=== PATIENT | male | born 1990 | race Caucasian/White ===

== ENCOUNTER 2021-05-15 14:14 | Emergency (ER) | payer OTHER, SELFPAY ==
--- NOTE | ~2021-05-15 | US_ITS ---
EXAMINATION: US scrotum doppler EXAM DATE: 05/15/2021 14:48 INDICATION: Right testicular pain and swelling after yard work. TECHNIQUE: Multiple grayscale and Doppler images of the testicles and scrotum were obtained bilateral ly. There is no prior study for comparison. FINDINGS: Right testicle measures 4.8 x 2.8 x 2.1 cm and is morphologically normal. Low resistance Doppler debby w confirmed. The epididymis is unremarkable. There is no hydrocele or varicocele. Left testicle measures 5.0 x 2.8 x 2.2 cm and is morphologically normal. Low resistance Doppler flow confirmed. The epididymis is unremarkable. There is no hydrocele or varicocele. IMPRESSION: 1. Unremarkable testicular/scrotal ultrasound exam. Reviewed, dictated and finalized at location G.
[2021-05-15 14:19] VITALS: BP 138/97; PULSE 96; RESP 16; TEMP 36.8; O2SAT 99
[2021-05-15 15:15] VITALS: BP 126/78; PULSE 88; RESP 18; TEMP 36.7; O2SAT 99
[2021-05-15 15:35] LABS: Add Urine Microscopic? NO; Appearance Urine Clear (Clear); Bilirubin Urine Negative (Negative); Blood Urine Negative (Negative); Color Urine Yellow (Yellow); Glucose Urine UA Negative (Negative); Ketones Urine Negative (Negative); Leukocyte Esterase Ur Negative LEU/UL (Negative); Nitrate Urine Negative (Negative); Protein Urine Negative (Negative); Urobilinogen Urine Negative mg/dL (<2.0)
[2021-05-15 16:02] LABS: Basophils Percent Auto 0.4 % (0.2-1.2); Eosinophils Absolute Auto 0.2 K/mm3 (0-0.3); Eosinophils Percent Auto 2.3 % (0-4.4); Hematocrit 42.5 % (42.0-52.0); Immature Granulocyte Absolute 0.02 K/mm3 (0.00-0.031); Immature Granulocyte Percent A 0.2 % (0-0.5); Lymphocytes Absolute Auto 2.94 K/mm3 (0.9-3.2); Lymphocytes Percent Auto 35.3 % (18.3-44.2); Mean Corpuscular HGB Conc 32.9 g/dl (32-36); Mean Corpuscular Hemoglobin 30.2 pg (26-34); Mean Corpuscular Volume 91.6 fl (80-100); Monocytes Absolute Auto 0.6 K/mm3 (0.1-0.6); Monocytes Percent Auto 6.7 % (2.6-8.5); Neutrophils Absolute Auto 4.6 K/mm3 (1.3-6.7); Neutrophils Percent Auto 55.1 % (45.5-73.1); Platelet Count Result 189 k/mm3 (150-375); Red Blood Count 4.64 M/mm3 (4.6-6.20); Red Cell Distribution Width 12.1 % (11.5-14.5); White Blood Count 8.3 K/mm3 (4.5-10.0)
--- NOTE | 2021-05-15 16:12 | ED.GENADULT ---
HPI - General Adult General Chief complaint: Urogenital-Male Stated complaint: R testicle pain ~36 hrs Time Seen by Provider: 05/15/21 15:13 Source: patient and RN notes reviewed Mode of arrival: ambulatory Limitations: no limitations History of Present Illness HPI narrative: Patient is a 30-year-old male who presents with right testicular pain that began yesterday after doing yard work denies injury or trauma notes very tender right scrotum testicle with even light touch or activity. Patient denies similar occurrence other complaints presents in no distress has been taking anti-inflammatories with minimal improvement denies any wounds or STD concern Related Data Allergies Allergy/AdvReac Type Severity Reaction Status Date / Time No Known Allergies Allergy Verified 05/15/21 15:16 Review of Systems Review of Systems: All systems reviewed & are unremarkable except as noted in HPI and below PMFSH Past Medical History Medical History Melanoma Obesity (BMI 30.0-34.9) Surgical History Surgical History H/O left wrist surgery Cyst removed left apx 3 years ago Family History Family History (Reviewed 10/01/20 @ 15:30 by Meghana Troncoso [facility]) Father Hypertension Social History Social History Smoking status: Never smoker Alcohol intake: current Exam Narrative: Exam Narrative: GENERAL: Well-appearing, well-nourished, and in no acute distress. HEAD: Normocephalic, atraumatic. EYES: PERRLA and EOMI. ENT: Nares clear, no rhinorrhea or epistaxis. Mucous membranes moist. CHEST: Clear to auscultation. No respiratory distress. No wheezes rales or rhonchi HEART: Regular rate and rhythm. No murmur heard. Normal peripheral pulses. ABDOMEN: Soft, nontender, nondistended MALE GENITOURINARY: Tenderness of the right scrotum testicle no deformity noted EXTREMITIES: Normal range of motion. No edema. SKIN: Warm, dry, no rash. NEURO: No focal deficits. Alert and oriented x3. PSYCH: Normal mood and affect. Course Course Emergency Course: Patient evaluated the emergency department for testicular pain no concerning findings in the evaluation will follow with primary care on an outpatient basis felt appropriate at this time for outpatient reevaluation Vital Signs Vital signs: Vital Signs Temperature 98.3 F 05/15/21 14:19 Pulse Rate 96 05/15/21 14:19 Respiratory Rate 16 05/15/21 14:19 Blood Pressure 138/97 H 05/15/21 14:19 Pulse Oximetry 99 05/15/21 14:19 Temperature 98.0 F 05/15/21 15:15 Pulse Rate 88 05/15/21 15:15 Respiratory Rate 18 05/15/21 15:15 Blood Pressure 126/78 05/15/21 15:15 Pulse Oximetry 99 05/15/21 15:15 Medical Decision Making MDM Narrative Medical decision making narrative: Patient presented with testicular pain with palpation normal ultrasound no concerning findings on the urinalysis or blood work will be discharged with outpatient follow-up with urology given reasons to return Vital Signs Vital Signs: Vital Signs Temperature 98.3 F 05/15/21 14:19 Pulse Rate 96 05/15/21 14:19 Respiratory Rate 16 05/15/21 14:19 Blood Pressure 138/97 H 05/15/21 14:19 Pulse Oximetry 99 05/15/21 14:19 Temperature 98.0 F 05/15/21 15:15 Pulse Rate 88 05/15/21 15:15 Respiratory Rate 18 05/15/21 15:15 Blood Pressure 126/78 05/15/21 15:15 Pulse Oximetry 99 05/15/21 15:15 Lab Data Result diagrams: 05/15/21 15:50 05/15/21 15:50 Labs: Lab Results 05/15/21 05/15/21 05/15/21 Range/Units 15:23 15:50 15:50 WBC 8.3 (4.5-10.0) K/mm3 RBC 4.64 (4.6-6.20) M/mm3 Hgb 14.0 (14.0-18.0) g/dL Hct 42.5 (42.0-52.0) % MCV 91.6 (80-100) fl MCH 30.2 (26-34) pg MCHC 32.9 (32-36) g/dl RDW 12.1 (11.5-14.5) % Plt Count 189 (150-
[2021-05-15 16:18] LABS: Anion Gap 13 mmol/L (8-16); Blood Urea Nitrogen 19 mg/dL (9-20); Calcium 9.6 mg/dL (8.4-10.2); Carbon Dioxide 25 mmol/L (22-30); Chloride 105 mmol/L (98-107); Estimated CRCL calculation 103 ml/min; Estimated Glomerular Filt Rate > 60; Glucose 112 mg/dL (65-110); Sodium 143 mmol/L (137-145)
== END 2021-05-15 17:17 | disposition home or self-care (01) ==
PROVIDERS: Emergency Medicine Emergency Medical Services; Emergency Provider Emergency Medicine; PCP Family Medicine
DX: N50.811 Right testicular pain (principal); E66.9 Obesity, unspecified; Z68.28 Body mass index [BMI] 28.0-28.9, adult; Z85.820 Personal history of malignant melanoma of skin
CPT/HCPCS: 36415; 76870; 80048; 81003; 85025; 93976; 99284

== ENCOUNTER → 2023-02-25 14:15 | Outpatient (CLI) | payer OTHER, SELFPAY ==
--- NOTE | ~2023-02-25 | CT_ITS ---
EXAMINATION: CT sinus wo con DATE: 02/25/2023 14:33 INDICATION: Chronic sinus disease. Other specified symptoms and signs involving the paranasal sinuses . TECHNIQUE: Computed tomography (CT) of the paranasal sinuses was performed without intravenous contra st. Iterative reconstruction technique was employed. The dose-length product was 301.24 mGy-cm. COMPARISON: None FINDINGS: The frontal sinuses are small. There is minimal mucosal thickening in left ethmoid sinus. T he sphenoid and maxillary sinuses are clear. There is rightward deviation of the nasal septum. 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 There are bilateral Mohit cells. The ostiomeatal units are patent. IMPRESSION: 1. Rightward deviation of the nasal septum. Reviewed, dictated and finalized at location E.
== END ==
PROVIDERS: PCP Family Medicine; Visit Provider Family Medicine
DX: R09.89 Other specified symptoms and signs involving the circulatory and respiratory systems (principal); J32.9 Chronic sinusitis, unspecified; J34.2 Deviated nasal septum
CPT/HCPCS: 70486

== ENCOUNTER 2024-01-26 15:12 | Outpatient (CLI) | payer OTHER, SELFPAY ==
--- NOTE | ~2024-01-26 | XR_ITS ---
EXAM: XR shoulder LT min 2V DATE: 01/26/2024 15:23 HISTORY: no injury posterior shoulder pain for 3-4 months . COMPARISON: None available. FINDINGS: Normal mineralization. No fracture or dislocation. No lytic or blastic lesion. Joint space s are maintained. No erosion or periosteal change. Soft tissues within normal limits. IMPRESSION: Normal left shoulder radiograph findings. Reviewed, dictated and finalized at location K.
== END 2024-01-26 15:13 ==
PROVIDERS: PCP Family Medicine; Visit Provider Nurse Practitioner Family
DX: M25.512 Pain in left shoulder (principal)
CPT/HCPCS: 73030

== ENCOUNTER 2024-07-19 09:20 | Outpatient (CLI) | payer OTHER, SELFPAY ==
--- NOTE | ~2024-07-19 | XR_ITS ---
EXAMINATION: XR lumbar spine min 4V DATE: 07/19/2024 09:52 INDICATION: Chronic low back pain. TECHNIQUE: 5 views of lumbar spine were obtained. COMPARISON: None. FINDINGS: Alignment is normal. Vertebral body heights and intervertebral disc heights are normal. The re is mild bilateral facet joint osteoarthritis at L4-L5. IMPRESSION: 1. Mild bilateral facet joint osteoarthritis at L4-L5. Reviewed, dictated and finalized at location A.
--- NOTE | ~2024-07-19 | XR_ITS ---
EXAMINATION: XR foot RT min 3V DATE: 07/19/2024 09:51 INDICATION: Hallux valgus, right foot. Right great toe pain. TECHNIQUE: 4 views of right foot were obtained. COMPARISON: None. FINDINGS: Bone alignment is normal. No fracture. Joint spaces are normal. IMPRESSION: 1. Normal right foot. Reviewed, dictated and finalized at location A. IMPRESSION: 1. Normal right foot.
== END 2024-07-19 09:21 | disposition home or self-care (01) ==
PROVIDERS: PCP Family Medicine; Visit Provider Family Medicine
DX: M47.816 Spondylosis without myelopathy or radiculopathy, lumbar region (principal); M20.11 Hallux valgus (acquired), right foot; M54.50 Low back pain, unspecified
CPT/HCPCS: 72110; 73630